=== PATIENT | male | born 1980 | race Caucasian/White ===

== ENCOUNTER 2019-10-01 21:52 | Emergency (ER) | payer OTHER ==
[~2019-10-01] VITALS: Ht 180.3 cm; Wt 79.4 kg
[2019-10-01] MEDS ORDERED: AMOXICILLIN 50500 M1 PO (22:44)
[2019-10-01] MEDS ORDERED: TRAMADOL 50 MG50 MG PO (22:44)
[2019-10-01 22:58] VITALS: BP 135/70
== END 2019-10-01 22:59 | disposition home or self-care (01) ==
LOC: M.ERS 21:52
DX: K02.9 Dental caries, unspecified (principal); F17.210 Nicotine dependence, cigarettes, uncomplicated